=== PATIENT | male | born 1990 | race Two or more races ===

== ENCOUNTER 2021-11-26 23:37 | Emergency (ER) | payer SELFPAY ==
[~2021-11-26] VITALS: Ht 190.5 cm; Wt 112.0 kg
[2021-11-27] MEDS ORDERED: LIDOCAINE HCL/EPINEPHRINE 1%-EPI 1:100,000 10 ML VIAL INFIL NR (01:30)
[2021-11-27] MEDS ORDERED: LIDOCAINE HCL/EPINEPHRINE 1%-EPI 1:100,000 20 ML VIAL INFIL ONE (01:30)
[2021-11-27] MEDS ORDERED: AMOXICILLIN/POTASSIUM CLAVULANATE 875/125MG TAB PO ONE (01:30)
[2021-11-27] MEDS ORDERED: AMOX1TAB16 MT (01:39)
[2021-11-27 02:15] VITALS: BP 114/78
== END 2021-11-27 02:15 | disposition home or self-care (01) ==
LOC: ER 23:37
DX: S51.851A Open bite of right forearm, initial encounter (principal); W54.0XXA Bitten by dog, initial encounter; Y93.89 Activity, other specified; Y92.89 Other specified places as the place of occurrence of the external cause
CPT/HCPCS: 12001; 99283; J3490